=== PATIENT | female | born 1995 | race Caucasian/White ===

== ENCOUNTER → 2019-11-06 13:27 | Outpatient (CLI) | payer OTHER, SELFPAY ==
[2019-11-06 13:51] LABS: Appearance Urine UA CLEAR; Bilirubin Urine UA NEGATIVE (NEGATIVE); Color Urine UA YELLOW; Glucose Urine UA NEGATIVE (Negative); Ketones Urine UA NEGATIVE (NEGATIVE); Leukocyte Esterase Urine UA NEGATIVE (NEGATIVE); Nitrite Urine UA NEGATIVE (Negative); Occult Blood Urine UA NEGATIVE (Negative); Protein Urine UA NEGATIVE (Negative); Specific Gravity Urine UA 1.015 (1.000-1.035); Urobilinogen Urine UA 0.2 E.U./dL (0.2)
[2019-11-06 13:57] LABS: Add Manual Diff / Slide Review NO; Basophils Absolute Auto 100 /uL (0-100); Basophils Percent Auto 0.7 % (0-2); Eosinophils Absolute Auto 0 /uL (0-450); Eosinophils Percent Auto 0.5 % (2-4); Hematocrit 37.1 % (36-46); Hemoglobin 12.5 g/dL (12.0-16.0); Lymphocytes Absolute Auto 2300 /uL (1100-4500); Mean Corpuscular HGB Conc 33.6 % (30-36); Mean Corpuscular Hemoglobin 29.5 PG (26-34); Mean Corpuscular Volume 87.8 fL (80-100); Monocytes Absolute Auto 500 /uL (0-900); Monocytes Percent Auto 6.1 % (3-14); Neutrophils Absolute Auto 4700 /uL (1500-7000); Neutrophils Percent Auto 62.7 % (50-75); Platelet Count 247 X10^3/uL (150-400); Red Blood Cell Count 4.23 X10^6/uL (4.0-5.2); White Blood Cell Count 7.6 X10^3/uL (4.5-11.0)
[2019-11-06 17:08] LABS: Hepatitis B Surface Antigen NEGATIVE s/c (NEGATIVE)
[2019-11-06 17:21] LABS: Hep C Virus Ab w/Reflex Quant NEGATIVE s/c (NEGATIVE)
[2019-11-06 17:58] LABS: HIV 1 & 2 Ab/Ag 4th Gen Combo NEGATIVE (NEGATIVE); Rubella Antibody IgG 29.2 IU/mL (>15)
[2019-11-07 04:12] LABS: RPR Screen Non Reactive (Non Reactive)
[2019-11-07 08:12] LABS: Varicella IgG Antibody 2073 index (Immune >165)
== END ==
PROVIDERS: PCP Family Medicine; Referring Provider Obstetrics & Gynecology; Visit Provider Obstetrics & Gynecology
DX: Z34.90 Encounter for supervision of normal pregnancy, unspecified, unspecified trimester (principal)
CPT/HCPCS: 36415; 80055; 81003; 86787; 86803; 86850; 86900; 86901; 87086; 87389

== ENCOUNTER → 2019-12-04 11:42 | Outpatient (CLI) | payer OTHER, SELFPAY ==
[2019-12-08 16:47] LABS: Sequential Screen 1st Trimeste See Separate Report
== END ==
PROVIDERS: PCP Family Medicine
DX: Z34.81 Encounter for supervision of other normal pregnancy, first trimester (principal); Z36.9 Encounter for antenatal screening, unspecified; Z3A.12 12 weeks gestation of pregnancy
CPT/HCPCS: 84163; 84702

== ENCOUNTER → 2020-01-05 12:21 | Outpatient (CLI) | payer OTHER, SELFPAY | PROVIDERS: PCP Family Medicine; Referring Provider Obstetrics & Gynecology; Visit Provider Specialist | DX: Z34.82 Encounter for supervision of other normal pregnancy, second trimester (principal); Z36.0 Encounter for antenatal screening for chromosomal anomalies | CPT/HCPCS: 36415; 82105; 82677; 84163; 84702; 86336 ==

== ENCOUNTER → 2020-01-22 12:21 | Outpatient (CLI) | payer OTHER, SELFPAY ==
--- NOTE | 2020-01-22 12:23 | DI.US.S_ITS ---
PROCEDURE: US OB >= 14 WEEKS FETUS INDICATIONS: ANATOMY OUTSIDE/PRIOR DATING DATA: Last menstrual period (LMP): 09/07/19. LMP-based estimated date of delivery (ANETA): 06/13/19 . First dating scan (date and location): 10/07/19 . Estimated date of delivery (ANETA) from first dating scan: 06/10/20 . TECHNIQUE: Real-time scanning was performed of the fetus, with image documentation and biometric measurements. Endovaginal scanning: Not performed COMPARISON: None. FINDINGS: General: A single living intrauterine gestation is present. Presentation: Breech. Placenta: Placental position is anterior , without previa. Amniotic fluid index: 12.7 cm, normal range is 5-24 cm. heart rate: 133 beats per minute. Maternal cervical canal: 3.6 cm long. Normal lower limit is 2.5 cm. biometrics: Biparietal diameter: 4.5 cm, 19 weeks 4 days Head circumference: 18.1 cm, 20 weeks 4 days Abdominal circumference: 16.1 cm, 21 weeks 1 day Femur length: 3.2 cm, 20 weeks 0 days Estimated gestational age from initial scan: 20 weeks 0 days Composite gestational age from present scan: 20 weeks 2 days 20 weeks Estimated weight and percentile: 363 g, 78th percentile Measurement variability for biometric dating: +/- 7 days from 14 weeks to 15 weeks 6 days gestation, +/- 10 days from 16 weeks to 21 weeks 6 days gestation, +/- 2 weeks from 22 weeks to 27 weeks 6 days gestation, +/- 3 weeks for 28 weeks gestation or later. weight reference: 4500 g or EFW >90/95% is considered macrosomia or large for gestational age. EFW <10% is small for gestational age. EFW 5% or less is considered intra-uterine growth restriction. Anatomic survey: Neuro: Ventricles are non-dilated at less than 10 mm. Cisterna magna is normal at 3-11 mm. Cerebellum is normal in size and morphology. Nuchal skin fold: Normal at less than 6 mm between 14-21 weeks gestational age. Face: Nose and lips, facial profile are normal. Spine: No evidence for spina bifida. Heart: 4-chambered heart is present, with normal ventricular outflow tracts. Intracardiac echogenic focus in the left ventricle measuring 1.8 mm. Diaphragm: Diaphragm is intact. Stomach: Left-sided stomach is present. Kidneys: No hydronephrosis. Normal is less than 5 mm in 2nd trimester, less than 7 mm in 3rd trimester. Cord: 3-vessel cord has orthotopic insertion. Bladder: Normal in size. Extremities: All 4 extremities identified. IMPRESSION: Single living intrauterine fetus in breech presentation. Expected interval growth Solitary intracardiac echogenic focus, technically nonspecific finding although recommend correlation with aneuploidy screening results. Otherwise, normal anatomic survey Dictated by: Carlos Manuel Patterson M.D. on 01/22/2020 at 14:47 Approved by: Carlos Manuel Patterson M.D. on 01/22/2020 at 14:51
== END ==
PROVIDERS: PCP Family Medicine; Referring Provider Obstetrics & Gynecology; Visit Provider Obstetrics & Gynecology
DX: Z34.82 Encounter for supervision of other normal pregnancy, second trimester (principal); Z3A.20 20 weeks gestation of pregnancy
CPT/HCPCS: 76811

== ENCOUNTER → 2020-03-05 14:59 | Outpatient (CLI) | payer MEDICAID, SELFPAY | PROVIDERS: PCP Family Medicine; Visit Provider Obstetrics & Gynecology | DX: Z34.82 Encounter for supervision of other normal pregnancy, second trimester (principal); Z3A.25 25 weeks gestation of pregnancy | CPT/HCPCS: 87491; 87591 ==

== ENCOUNTER → 2020-03-25 12:52 | Outpatient (CLI) | payer MEDICAID, SELFPAY ==
[2020-03-25 14:44] LABS: Hematocrit 35.5 % (36-46); Hemoglobin 11.8 g/dL (12.0-16.0)
[2020-03-25 15:38] LABS: GTT (PREG) 1 Hour PP 50gm Dose 135 mg/dL (76-139)
== END ==
PROVIDERS: PCP Family Medicine; Referring Provider Obstetrics & Gynecology; Visit Provider Obstetrics & Gynecology
DX: Z34.82 Encounter for supervision of other normal pregnancy, second trimester (principal); Z3A.26 26 weeks gestation of pregnancy
CPT/HCPCS: 36415; 82950; 85014; 85018

== ENCOUNTER → 2020-04-02 16:47 | Outpatient (CLI) | payer OTHER, SELFPAY | PROVIDERS: PCP Family Medicine; Visit Provider Obstetrics & Gynecology | DX: Z34.83 Encounter for supervision of other normal pregnancy, third trimester (principal); Z3A.29 29 weeks gestation of pregnancy | CPT/HCPCS: 87491; 87591 ==

== ENCOUNTER → 2020-05-14 15:01 | Outpatient (CLI) | payer OTHER, MEDICAID, SELFPAY ==
[2020-05-15 17:35] LABS: Strep Grp B PCR NEG for Grp B Strep
[2020-05-15 18:08] LABS: Urine N gonorrhoeae NOT DETECTED
[2020-05-15 18:40] LABS: Urine Chlamydia NOT DETECTED
== END ==
PROVIDERS: PCP Family Medicine; Visit Provider Obstetrics & Gynecology
DX: Z34.83 Encounter for supervision of other normal pregnancy, third trimester (principal)
CPT/HCPCS: 87491; 87591; 87653

== ENCOUNTER 2020-05-30 22:55 | Observation (INO) | payer OTHER, MEDICAID, SELFPAY ==
[2020-05-30 23:33] LABS: COVID19 -Nasal RAPID Negative (Negative)
[2020-05-30 23:52] VITALS: BP 113/70
[2020-05-31] MEDS: LACTATED RINGERS 1,000 ML 100 ML IV (01:03)
[2020-05-31] MEDS: HYDROCODONE/ACET 5/325 TABLET 1 TAB PO (02:40)
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
== END 2020-05-31 02:53 | disposition home or self-care (01) ==
PROVIDERS: Admitting Provider Family Medicine; PCP Family Medicine; Referring Provider Family Medicine; Visit Provider Family Medicine
DX: Z34.83 Encounter for supervision of other normal pregnancy, third trimester (principal); Z3A.38 38 weeks gestation of pregnancy
CPT/HCPCS: 36415; 59025; 59050; 87635; 96360; C9803; G0378; G0379

== ENCOUNTER 2020-05-31 14:36 | Observation (INO) | payer OTHER, MEDICAID, SELFPAY | END 2020-05-31 15:14 | disposition home or self-care (01) | PROVIDERS: Admitting Provider Obstetrics & Gynecology; PCP Family Medicine; Referring Provider Obstetrics & Gynecology; Visit Provider Obstetrics & Gynecology | DX: Z34.83 Encounter for supervision of other normal pregnancy, third trimester (principal); Z3A.38 38 weeks gestation of pregnancy | CPT/HCPCS: 59025; 84112; G0378; G0379 ==

== ENCOUNTER 2020-06-01 09:26 | Inpatient (IN) | payer OTHER, MEDICAID, SELFPAY ==
[2020-06-01 10:00] VITALS: BP 105/67
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
[2020-06-01 11:13] LABS: Add Manual Diff / Slide Review NO; Basophils Absolute Auto 100 /uL (0-100); Basophils Percent Auto 0.8 % (0-2); Eosinophils Absolute Auto 100 /uL (0-450); Eosinophils Percent Auto 0.6 % (2-4); Hemoglobin 12.7 g/dL (12.0-16.0); Lymphocytes Absolute Auto 1700 /uL (1100-4500); Lymphocytes Percent Auto 19.1 % (25-40); Mean Corpuscular HGB Conc 32.6 % (30-36); Mean Corpuscular Hemoglobin 29.8 PG (26-34); Mean Corpuscular Volume 91.5 fL (80-100); Monocytes Absolute Auto 500 /uL (0-900); Monocytes Percent Auto 5.8 % (3-14); Neutrophils Absolute Auto 6400 /uL (1500-7000); Neutrophils Percent Auto 73.7 % (50-75); Platelet Count 199 X10^3/uL (150-400); Red Blood Cell Count 4.27 X10^6/uL (4.0-5.2); Red Cell Distribution Width 15.1 % (11.6-14.8); White Blood Cell Count 8.7 X10^3/uL (4.5-11.0)
[2020-06-01] MEDS: fentaNYL 100 MCG/2 ML INJ IV (12:50)
--- NOTE | 2020-06-01 14:54 | PM.PROC.1 ---
Procedures Date/Time Date of procedure: 06/01/20 Time of procedure: 14:38 General Procedure description: CNM called to room from OR for patient C/C/+2 and pushing w/primarily Cat 1 FHTs . Patient assisted to left side lying and coached for support during unmedicated . NSVB of a viable baby boy in YUMIKO position w/ a double nuchal cord reduced on the perineum. Shoulders were tight, but did not require additional maneuvers. Lots of terminal meconium was noted. was lifted to maternal abdomen by patient where drying and stimulation occurred. Apgars 7/9. RT was standing by for the and was thanked for their presence only. , patient's primary OB, returned from OR and resumed care at that time.
--- NOTE | 2020-06-01 15:10 | PM.OBPRVD ---
Labor & Delivery Delivery date: 06/01/20 Intrapartal Events: None Cervical ripening method: none Induction method: none Delivery monitor: external FHT and external uterine Route of delivery: Episiotomy description: None L&D Laceration Description: Perineal - 2nd Degree and Vaginal - 2nd Degree Delivery repair: vicryl and chromic Estimated blood loss (mL): 200 Anesthesia Type: Local Complications: None Narrative: Patient complete and pushed for 5 minutes. At 1438, a live male infant delivered spontaneously in the vertex presentation. A double nuchal cord was reduced on the perineum. The remainder of the body deliver Lucrecia difficulty and was placed on mom's abdomen. The cord was double clamped and cut after it stopped pulsing. Cord bloods were obtained. The placenta delivered intact with a three-vessel cord at 2:46 p.m.. Fundus was massaged to firm. 10 units of Pitocin were placed in the IV fluids. A second-degree perineal/vaginal laceration was repaired after 10 cc of 1% lidocaine were injected. Two 0 Vicryl was placed on the deep layers and 2-0 chromic was placed on the skin and mucosa. Hemostasis was achieved. . No anesthesia for labor and local only for repair. 7 at 1 minute and 9 at 5 minutes. Mom and stable to recovery. Baby 1: gender: Male Presentation: vertex Position: Right Occiput Anterior Placenta delivery description: Spontaneous Cord Vessel Description: 3 Vessels and Nuchal Cord (x2) score (1 min): 7 score (5 min): 9 Narrative: Terminal meconium Plan for aftercare: Routine care
[2020-06-01] MEDS: IBUPROFEN 600 MG TABLET PO ×2 (15:39→22:51)
[2020-06-01] MEDS: DERMOPLAST SPRAY 20% 60 ML 1 SPRAY TOP (15:42)
[2020-06-01] MEDS: LACTATED RINGERS 1,000 ML 100 ML IV (15:56)
[2020-06-01] MEDS: LANOLIN OINT 7 GM 1 APPLIC TOP (22:51)
[2020-06-01] MEDS: ACETAMINOPHEN 325 MG TABLET 650 MG PO (22:53)
[2020-06-02 06:25] LABS: Hematocrit 34.3 % (36-46)
[2020-06-02] MEDS: DOCUSATE 100 MG CAPSULE PO (07:48)
[2020-06-02] MEDS: PRENATAL VIT,CALC/IRON/FOLIC 1 TABLET 1 TAB PO (07:48)
[2020-06-02] MEDS: IBUPROFEN 600 MG TABLET PO ×2 (07:48→12:08)
[2020-06-02 09:45] VITALS: BP 105/67; PULSE 76; RESP 17; TEMP 37
[2020-06-02] MEDS: ACETAMINOPHEN 325 MG TABLET 650 MG PO (12:08)
--- NOTE | 2020-06-02 12:19 | P.DS_ITS ---
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 The patient progressed to complete dilation and had a spontaneous vaginal delivery without complication. She had a second-degree laceration with repair under local. is going well. Bleeding is normal. Patient is discharged home. Peripartum Data Delivery Method: Natural Vaginal Laceration Description: Perineal - 2nd Degree and Vaginal - 2nd Degree Episiotomy description: None Procedures: Spontaneous vaginal delivery Second-degree laceration and repair complications: none 1: Gender: Male Disposition of : home Status at Discharge Cognitive/behavioral status at discharge: oriented Functional status at discharge: independent ambulation Overall status at discharge: patient is progressing back to baseline Time Spent with Patient Time attestation: Total time spent providing and/or coordinating discharge services: Time spent: Less than 30 minutes Objective Labs Result Diagrams: 06/02/20 06:05 Labs: Laboratory Results - last 24 hr 06/01/20 06/02/20 10:55 06:05 Hgb 11.0 L Hct 34.3 L Blood Type O Positive Antibody Screen Negative Exam Vital Signs (past 8 hours): - 06/02/20 09:45 Temperature 98.6 F Pulse Rate 76 Respiratory Rate 17 Blood Pressure 105/67 Narrative Exam Narrative: Generally: Patient is sitting up in bed, no acute distress Fundus: Firm at U -1 Extremities: Negative Homans, no edema Discharge Plan Discharge Plan Patient Disposition: Home Provider Discharge Comment: Fall with fever, chills, or bleeding vaginally more than a pad in an hours Tylenol 650 mg every 6 hours as needed Ibuprofen 600 mg every 6 hours as needed Continue vitamins Discharge orders & Medications Prescriptions: Continued prenat.vits,ana,[id number]-gncfs Tablet 1 tab PO DAILY RF: 0 Follow up/Referrals: Marta Simmons MD [Physician] - 6 Weeks (I will have my office call in the morning to make 6 wk PP visit) Diet/Activity/Treatments Diet: Regular Activity: No intercourse until 6 wk PP visit Skin/Wound/Dressing Care Report to your healthcare provider any signs of infection, such as:: chills, fever, increased pain and unusual drainage Visit Report/Discharge Packet Instructions: DI for Labor and Delivery, Vaginal Stand Alone Forms: Discharge: Care Discharge Data Primary Care Provider: Jyotsna Woodard
== END 2020-06-02 14:07 | disposition home or self-care (01) | DRG 560 ==
PROVIDERS: Obstetrics & Gynecology; Admitting Provider Nurse Practitioner Obstetrics & Gynecology; PCP Family Medicine; Referring Provider Nurse Practitioner Obstetrics & Gynecology; Visit Provider Nurse Practitioner Obstetrics & Gynecology
DX: O42.02 Full-term premature rupture of membranes, onset of labor within 24 hours of rupture (principal); O69.81X0 Labor and delivery complicated by cord around neck, without compression, not applicable or unspecified; O77.0 Labor and delivery complicated by meconium in amniotic fluid; O70.1 Second degree perineal laceration during delivery; Z3A.38 38 weeks gestation of pregnancy; Z37.0 Single live birth; Z20.822 Contact with and (suspected) exposure to COVID-19
CPT/HCPCS: 36415; 59025; 59050; 59409; 84112; 85014; 85018; 85025; 86850; 86900; 86901; 87635; 96360; C9803; G0378; G0379; J3010

== ENCOUNTER → 2020-08-07 13:35 | Outpatient (CLI) | payer OTHER, MEDICAID, SELFPAY ==
[2020-08-07] MEDS: COVID-19 VACC #1, MRNA(MOD) 100 MCG/0.5 ML VIAL IM (13:39)
== END ==
PROVIDERS: PCP Family Medicine; Visit Provider Internal Medicine
DX: Z23 Encounter for immunization (principal)
CPT/HCPCS: 0011A; 91301

== ENCOUNTER → 2020-09-04 13:28 | Outpatient (CLI) | payer OTHER, MEDICAID, SELFPAY ==
[2020-09-04] MEDS: COVID-19 VACC #2, MRNA(MOD) 100 MCG/0.5 ML VIAL IM (13:34)
== END ==
PROVIDERS: PCP Family Medicine; Visit Provider Internal Medicine
DX: Z23 Encounter for immunization (principal)
CPT/HCPCS: 0012A; 91301

== ENCOUNTER → 2022-04-01 06:51 | Outpatient (CLI) | payer OTHER, MEDICAID, SELFPAY ==
--- NOTE | 2022-04-01 | DI.US.S_ITS ---
PROCEDURE: US OB >= 14 WEEKS FETUS INDICATIONS: 20 WEEK ANATOMY SCAN OUTSIDE/PRIOR DATING DATA: Last menstrual period (LMP): Unknown. LMP-based estimated date of delivery (ANETA): Unknown. First dating scan (date and location): 04/01/2022. Estimated date of delivery (ANETA) from first dating scan: 08/04/2022. The calculations are made using the ultrasound ANETA of 08/04/2022. TECHNIQUE: Real-time scanning was performed of the fetus, with image documentation and biometric measurements. COMPARISON: None. FINDINGS: General: A single living intrauterine gestation is present. Presentation: Variable. Placenta: Placental position is anterior, without previa. Amniotic fluid index: 11.3 cm, normal range is 5-24 cm. Single deepest vertical pocket is 3.5 cm. heart rate: 137 beats per minute. Maternal cervical canal: 4.4 cm long. Normal lower limit is 2.5 cm. biometrics: Biparietal diameter: 5.1 cm, 21 weeks 3 days Head circumference: 19.4 cm, 21 weeks 5 days Abdominal circumference: 17.6 cm, 22 weeks 3 days Femur length: 4.0 cm, 22 weeks 6 days Composite gestational age from present scan: 22 weeks 1 day Estimated weight: 511 g Anatomic survey: Neuro: Ventricles are non-dilated at less than 10 mm. Cisterna magna is normal at 3-11 mm. Cerebellum is normal in size and morphology. Nuchal skin fold: Normal at less than 6 mm between 14-21 weeks gestational age. Face: Nose and lips, facial profile are normal. Spine: No evidence for spina bifida. Heart: 4-chambered heart is present, with normal ventricular outflow tracts. Diaphragm: Diaphragm is intact. Stomach: Left-sided stomach is present. Kidneys: No hydronephrosis. Normal is less than 5 mm in 2nd trimester, less than 7 mm in 3rd trimester. Cord: 3-vessel cord has orthotopic insertion. Bladder: Normal in size. Extremities: All 4 extremities identified. IMPRESSION: 1. Purdy living intrauterine at 22 weeks 1 day based on today's ultrasound. 2. Normal placenta and amniotic fluid. 3. Normal anatomic survey. We strive to produce accurate, complete, and clear reports of imaging services. To assist us in improving patient care, this report was composed using standard report templates and voice recognition software. Therefore, it may contain abnormal punctuation, insertions and/or omissions. Occasional wrong-word or sound-alike substitutions may occur. Though we review the report and make efforts to correct it, we do recommend that the report be read carefully in proper context to recognize any text inaccuracies. Dictated by: Get Daniels M.D. on 04/01/2022 at 8:55 Approved by: Get Daniels M.D. on 04/01/2022 at 9:01
== END ==
PROVIDERS: PCP Family Medicine; Referring Provider Nurse Practitioner Obstetrics & Gynecology; Visit Provider Nurse Practitioner Obstetrics & Gynecology
DX: Z34.92 Encounter for supervision of normal pregnancy, unspecified, second trimester (principal); Z3A.22 22 weeks gestation of pregnancy
CPT/HCPCS: 76811